=== PATIENT | female | born 1970 | race Caucasian/White ===

== ENCOUNTER 2017-06-14 10:15 | Inpatient (IN) ==
--- NOTE | 2017-06-13 21:45 | Discharge Summary ---
<Shreya Hansen - Last Filed: 06/14/17 10:04> Date of Encounter: 06/14/17 - Discharge Diagnosis (1) Aseptic loosening of prosthetic knee Priority: Primary Status: Acute Qualifiers: Encounter type: initial encounter Qualified Code(s): T84.038A - Mechanical loosening of other internal prosthetic joint, initial encounter; Z96.659 - Presence of unspecified artificial knee joint; Z96.659 - Presence of unspecified artificial knee joint (2) Status post revision of total replacement of right knee Priority: Primary Status: Acute (3) HTN (hypertension) Priority: Secondary Status: Chronic Qualifiers: Hypertension type: essential hypertension Qualified Code(s): I10 - Essential (primary) hypertension (4) Asthma Priority: Secondary Status: Chronic - Discharge Medications Home Medications: Aspirin Enteric Coated [Aspirin EC] 325 mg PO DAILY #21 tablet.dr 06/13/17 [Rx] Enoxaparin [Lovenox] 30 mg SQ Q12HR #20 syr 06/13/17 [Rx] OxyCODONE Immed Rel [Roxicodone 5 MG] 5 mg PO Q6HR PRN 7 Days #28 tablet [Rx] Baclofen [Lioresal] 10 mg PO TID PRN 06/14/17 [History] Budesonide/Formoterol 160/4.5 [Symbicort 160/4.5] 2 puff IH BIDR 06/14/17 [ History] Lisinopril [Zestril] 40 mg PO DAILY 06/14/17 [History] Tramadol HCl [Ultram] 50 mg PO BID PRN 06/14/17 [History] cloNIDine HCl [CloNIDine HCl] 0.1 mg PO TID PRN 06/14/17 [History] Allergies/Adverse Reactions: 3 Allergy/AdvReac Type Severity Reaction Status Date / Time aspirin Allergy Vomiting Verified 06/14/17 10:49 azithromycin [From Zithromax] Allergy Vomiting Verified 06/14/17 10:49 naproxen [From Naprosyn] Allergy Vomiting Verified 06/14/17 10:49 Primary care physician: Giovani Mcbride CNP - Patient Status Disposition: Home, Self-Care Condition: Good - Discharge Instructions Follow Up With: Isael Butler MD [Partnered Physician] - 07/14/17 5:00 pm Shreya Hansen PAC [Physician Program Director/Air Personality] - 06/24/17 8:00 am (Also, appointment 07/02/17 @ 9:30AM ) Giovani Mcbride CNP [Primary Care Provider] - 07/08/17 4:00 pm Anthony Rios MD [Partnered Physician] - 07/20/17 11:00 am ( Appointment in [facility]) - Hospital Course Hospital course: Ms. 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 Qualifiers: Encounter type: subsequent encounter Qualified Code(s): T84.038D - Mechanical loosening of other internal prosthetic joint, subsequent encounter; Z96.659 - Presence of unspecified artificial knee joint; Z96.659 - Presence of unspecified artificial knee joint (3) Status post revision of total replacement of right knee Priority: Primary Status: Acute (4) HTN (hypertension) Priority: Secondary Status: Chronic Qualifiers: Hypertension type: essential hypertension Qualified Code(s): I10 - Essential (primary) hypertension (5) Asthma Priority: Secondary Status: Chronic Qualifiers: Asthma severity: unspecified severity Asthma persistence: unspecified Asthma complication type: unspecified Qualified Code(s): J45.909 - Unspecified asthma, uncomplicated Primary care physician: Giovani Mcbride CNP - Patient Status Functional capacity at discharge: uses cane/walker Overall status at discharge: patient is progressing back to baseline - Hospital Course Hospital course: Ms. Mercado is a 47 year old female Status post revision right total knee. The patient had an uneventful postoperative course. They received antibiotics and physical therapy and were discharged in stable condition. There will follow -up in the office in 2 weeks. - Time Spent with Patient Total time spent providing and/or coordinating discharge services:
[2017-06-14] MEDS ORDERED: Lidocaine -MPF 1% 2 ML VIAL ID ONE (10:37)
[2017-06-14] MEDS ORDERED: Vancomycin 1,750 MG in D5% in Water 250 ML IVPB ONE (10:37)
[2017-06-14] MEDS ORDERED: Vancomycin 1,750 MG in D5% in Water 500 ML IVPB ONE (10:42)
[2017-06-14] MEDS ORDERED: Ringers Solution, Lactated 1,000 ML IVC SCH ×2 (10:45→15:15)
[2017-06-14] MEDS ORDERED: Plasma-Lyte A (PH 7.4) 1,000 ML IVC SCH (11:00)
--- NOTE | 2017-06-14 11:05 | Anesthesia Evaluation PreOp ---
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: Other (depression, anxiety) Other Medical History: Other (hx malignant melanoma) Anesthesia History: No Prior Anesthetic Complications, Past Anesthesia ( hysterectomy and unilateral oopherectomy, cholecystectomy, endometrial ablation , meniscus repair, C-S, tubal, TKR right, cervical spine surgery) Alcohol Use: occasionally Drug use: none Medications and Allergies Aspirin Enteric Coated [Aspirin EC] 325 mg PO DAILY #21 tablet.dr 06/13/17 [Rx] Enoxaparin [Lovenox] 30 mg SQ Q12HR #20 syr 06/13/17 [Rx] OxyCODONE Immed Rel [Roxicodone 5 MG] 5 mg PO Q6HR PRN 7 Days #28 tablet [Rx] Baclofen [Lioresal] 10 mg PO TID PRN 06/14/17 [History] Budesonide/Formoterol 160/4.5 [Symbicort 160/4.5] 2 puff IH BIDR 06/14/17 [ History] Lisinopril [Zestril] 40 mg PO DAILY 06/14/17 [History] Tramadol HCl [Ultram] 50 mg PO BID PRN 06/14/17 [History] cloNIDine HCl [CloNIDine HCl] 0.1 mg PO TID PRN 06/14/17 [History] 3 Allergy/AdvReac Type Severity Reaction Status Date / Time aspirin Allergy Vomiting Verified 06/14/17 10:49 azithromycin [From Zithromax] Allergy Vomiting Verified 06/14/17 10:49 naproxen [From Naprosyn] Allergy Vomiting Verified 06/14/17 10:49 - Meds/Allergy Pre-op Review Medications Reviewed: Yes Allergies Reviewed: Yes Beta Blockers on Current Med List: No Anesthesia Results - Labs Laboratory Tests 05/31/17 05/31/17 05/31/17 11:42 11:42 11:42 WBC 9.3 Hgb 16.3 H Hct 48.9 H Plt Count 289 PT 11.7 INR 1.1 APTT 31.8 Sodium 138 Potassium 3.9 Chloride 107 Carbon Dioxide 22 BUN 14 Creatinine 0.82 Est GFR ( Amer) > 60 Est GFR (Non-Af Amer) > 60 BUN/Creatinine Ratio 17 - Imaging EKG: report reviewed, image reviewed (SR) Anesthesia Exam Last Vital Signs Temp 97.5 F L 06/14/17 10:49 Pulse 76 06/14/17 10:49 Resp 18 06/14/17 10:49 BP 147/95 06/14/17 10:49 Pulse Ox 95 06/14/17 10:49 Weight: 111 kg NPO (# of Hours): >> 8 hrs - HEENT Pupil (Motor): Pupils equal, EOMI Mallampati: II Teeth: Missing, Poor dentition Denture Type: Upper: Partial Oral Opening: Greater than 3 - ESTHETICIAN AND [employer]GER [employer] LOC: Oriented ESTHETICIAN [employer] Motor: Normal RUE, Normal LUE, Normal RLE, Normal LLE, Normal Face - Cardiac Rhythm: Regular Murmur: None - Pulmonary Breath Sounds: bilateral Clear Respiratory Effort: Symmetrical Anesthesia Assess/Plan ASA Score: 3 Modified Ananth Scale for Level of Consciousness: Cooperative, oriented, and tranquil Anesthetic Plan: General, Regional Monitoring Plan: Standard Monitors Recovery Plan: PACU
--- NOTE | 2017-06-14 11:10 | History & Physical Report ---
Date of Encounter: 06/14/17 Time of Encounter: 11:10 24 Hour HP Update - Instructions Instructions: If the History and Physical is less than 30 days old and was completed prior to A.M. admission and or procedure and has NOT been updated on calendar day of procedure please complete this update prior to performing procedure. - Update Patient reports changes in Medical Condition: No Changes in examination, assessment, or condition: No Changes in Medication: No Preop tests/diagnostics Reviewed: Yes Surgery Remains Indicated: Yes Consent for Planned Operative Procedure(s) Verified: Yes - Pre-Operative Checklist Preoperative Checklist Indicated: No Prophylactic Antibiotic Ordered: Yes Is VTE Prophylaxis Indicated?: Yes
[2017-06-14] MEDS ORDERED: Scopolamine Patch 1.5 MG PATCH.TD72 TD ONE (11:16)
[2017-06-14] MEDS ORDERED: Albuterol 2.5 MG/3 ML NEBULIZER IH ONE (11:17)
[2017-06-14] MEDS ORDERED: Ethanol\\Acetic Acid\\Na Ace\\Ben 1,000 ML IRRIG.SOLN IR ONE (11:26)
[2017-06-14] MEDS ORDERED: *HR* Promethazine 25 MG/ML VIAL IVP PRN (11:28)
[2017-06-14] MEDS ORDERED: Ketorolac 30 MG/ML VIAL ONE (11:30)
[2017-06-14] MEDS ORDERED: Dexamethasone 4 MG/ML VIAL ONE ×2 (11:30→11:39)
[2017-06-14] MEDS ORDERED: *HR* Succinylcholine 200 MG/10 ML VIAL IVP ONE (11:39)
[2017-06-14] MEDS ORDERED: Lidocaine -MPF 4% 5 ML AMPUL ONE (11:39)
[2017-06-14] MEDS ORDERED: *HR* Propofol 200 MG/20 ML VIAL IVP ONE (11:39)
[2017-06-14] MEDS ORDERED: *HR* Midazolam HCl 2 MG/2 ML VIAL ONE (11:39)
[2017-06-14] MEDS ORDERED: Ondansetron 4 MG/2 ML VIAL ONE (11:39)
[2017-06-14] MEDS ORDERED: *HR* FentaNYL (PF) 100 MCG/2 ML VIAL ONE (11:39)
[2017-06-14] MEDS ORDERED: Lidocaine -MPF 2% 2 ML VIAL ONE (11:39)
[2017-06-14] MEDS ORDERED: ROPIVACAINE HCL/PF 0.5% 30 ML VIAL ONE (12:02)
--- NOTE | 2017-06-14 12:39 | Anesthesia Procedures ---
Date of Encounter: 06/14/17 Time of Encounter: 12:30 Procedures: Anesthesia - Nerve Block Procedure Date: 06/14/17 Time: 12:30 Allergies/Adv Reactions: ASA, ZITHROMAX,NAPROXEN Pre-op Diagnosis: RIGHT TOTAL KNEE ARTHRITIS Surgical Procedure: RIGHT TOTAL KNEE Checklist: Correct Patient Identifier, Correct procedure, History checked Correct side: Right Blood Thinner: No Monitor Applied: EKG, BP, Pulse Oximetry Supplemental Oxygen via Nasal Cannula (L/min): 2 Sedation: Versed (mg): 2 Sedation: Fentanyl (mcg): 100 Indication: Post Op Analgesia Pre-op Neuro Deficits: No Block Type: Femoral (WITH ipack ) Catheter placed: No Sterile Technique: Yes Ultrasound used: Yes Anatomy identified: Yes Visual spread of Local: Yes Neuro Stimulation: Yes Nerve Stimulator Range: 0.2 - 0.4 mA Blood on Needle Aspiration: No Smooth Injection of Local: Yes Pain with Injection of Local: No Prep: Chlorhexadine Needle: 22 x 50 mm Stimuplex Local: Ropivacaine (0.5% ROPI WITH 8MG DECADRON ), Other (BUPIVICAINE 0.25% WITH IPACK ) Volume (cc): 60 Number of Attempts: 1 Complications: None/effective block Vitals: Vital Signs - Last 8 Hours Temp Pulse Resp BP Pulse Ox 06/14/17 12:14 75 16 150/96 96 06/14/17 10:49 97.5 F L 76 18 147/95 95 06/14/17 10:30 97.5 F L 76 18 147/95 95 Intake and Output 06/13/17 06/14/17 06/14/17 23:59 07:59 15:59 Other: Weight 111.13 kg Patient Weight 06/14/17 23:59 Weight 111.13 kg Comments: PER DR. LYON REQUEST
[2017-06-14] MEDS ORDERED: Acetaminophen IV 1,000 MG/100 ML INFUS..BTL ONE (12:45)
[2017-06-14] MEDS ORDERED: *HR* HYDROmorphone 2 MG/ML SYRINGE ONE (13:35)
--- NOTE | 2017-06-14 13:57 | Orthopedic Operative Note ---
Date of procedure: 06/14/17 Pre-op diagnosis: Right total knee aseptic loosening Post-op diagnosis: same (Mid flexion instability) Procedure: Procedure: Right revision total knee Estimated blood loss: 300 Hardware: Metal and polyethylene replacement. Biomet SSK femur: 65 [id number] Tibia: 71 14x80 Constrained Valeria:22 Exam Under anesthesia: Full flexion and extension, mid flexion valgus instability Procedural Notes: No gross loosening but femur appeared to be looser than tibia. Operative procedure: The patient was brought to the operating room and placed on the operating room table. After general anesthesia was administered the operative knee was examined. Findings were noted in the exam under anesthesia. The operative extremity was prepped and draped in sterile surgical fashion. The patient received IV antibiotics prior to skin incision. A standard midline incision was made centered over the patella through the old incision. The incision was made through the skin and subcutaneous tissue. A medial parapatellar tendon approach was performed. Care was taken to preserve tissue along the medial aspect of the patella. And to protect the patella tendon. The deep MCL was released off the medial tibia. The infra patella fat pad was excised. Fluid was encountered this was normal joint fluid, Cultures were obtained and gram . The knee was brought into flexion the poly-was removed. The interface between the patient's femoral component and distal femur were disrupted with a osteotome and oscillating saw. Femoral component was removed removed without significant bone loss. This appeared to be looser than the tibial component. Attention was then turned to the tibial component. The same technique was used to remove the tibial component by disrupting the interface between the patient' s tibial component and the patients proximal tibia. The tibial component was removed without significant bone loss. The tibia was sized to a 71 was reamed up to a 14 x 80 Trial had good fit and fixation. The femur was sized to a 55, was reamed up to a 18 x 1 20 The finishing guide was seated and the box cut was made. The trial had good fit and fixation. Both trial components were seated and the 22 constrained Valeria was seated and secured. The knee had full flexion and full extension with no mid flexion instability. Patella had excellent patella tracking. The trial components were removed. The knee sat for 2 minutes with a Betadine saline solution. It was irrigated out with 2 L of pulse irrigation. The components were assembled on the back table, the tibia cemented first followed by the femur. The 22 constrained liner was seated and secure. The knee was brought to full extension while the cement hardened. After the cement hardened the knee was irrigated out again. The PA closed the knee. The extensor mechanism was closed with a running #2 Fiberwire suture and a running #2 PDS suture. The deep tissue was irrigated and closed deep with #1 PDS suture superficially with 0 PDS suture. The skin was closed with skin elvira. The patient was placed in a sterile dressing and postoperative brace. They were extubated and transferred to recovery room in stable condition. Anesthesia: YAMILETH Surgeon: Isael Butler Magnetic Resonance Technologist: Betty Ferguson Condition: stable Disposition: PACU
[2017-06-14] MEDS: *HR* HYDROmorphone (PF) 1 MG/ML SYRINGE IVP PRN ×3 (14:45→15:02)
--- NOTE | 2017-06-14 15:14 | Anesthesia Evaluation Post Op ---
Date of Encounter: 06/14/17 Time of Encounter: 15:12 - Vital Signs Vital Signs: vss - Lungs Lungs: Clear Ascult./Percussion - Airway Airway: Non-obstructed - Cardiovascular Baseline Rhythm - Mental Status Mental Status: Asleep with brisk response to light stimulation - Pain Pain Scale used: Dueñas-Wilson (Faces) (to apparent distress noted, resting) - Nausea Vomiting Nausea Vomiting: Not Present - Hydration Hydration: Ice chips - Discharge PostOp Status: Transfer Patient to floor
[2017-06-14] MEDS ORDERED: cloNIDine HCl 0.1 MG TABLET PO PRN (15:15)
[2017-06-14] MEDS ORDERED: Baclofen 10 MG TABLET PO PRN (15:15)
[2017-06-14] MEDS ORDERED: traMADol 50 MG TABLET PO PRN (15:15)
[2017-06-14] MEDS ORDERED: *HR* HYDROmorphone (PF) 1 MG/ML SYRINGE IVP PRN (15:15)
[2017-06-14] MEDS ORDERED: Naloxone 0.4 MG/ML INJ IVP PRN (15:15)
[2017-06-14] MEDS ORDERED: Sennosides 8.6 MG TABLET PO PRN (15:15)
[2017-06-14] MEDS ORDERED: *HR* OxyCODONE Immed Rel 5 MG TABLET PO PRN (15:15)
[2017-06-14 15:31] LABS: Hematocrit 43.2 % (35.3-44.9); Hemoglobin 14.3 g/dL (11.5-15.4)
--- NOTE | 2017-06-14 16:12 | Physician Discharge Referral ---
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 For more information, call the [place] Tobacco Quit Line at 0-786-YSZC-NOW. - Dressing/Wound Care Type of Dressing/Treatments w/Frequency: Opsite placed. Keep dressing intact until first follow up appointment. If > 50% saturated,notify offfice, remove dressing and place appropriate dressing back in place. Dressing is water resistant, not water-proof. OK to shower, but do not get dressing wet. [place] in place, to be removed at POD#14-16. - Diet/Nutrition Diet/Nutrition Orders: Regular - Activity Activity Orders: Up ad katie, Ambulate, Walker - Services Needed Following services are medically necessary services: Nursing, Home Health Aide, Physical Therapy, Occupational Therapy Home Care Orders: PT/OT. WBAT to affected extremity. Follow Total Knee Precautions x 6 weeks. Stay in brace at night only. Plan to discontinue brace after first post- operative appointment. ICE and elevate extremity frequently throughout the day. Encourage ambulation exercises. - Transfer Medications Home Medications: Aspirin Enteric Coated [Aspirin EC] 325 mg PO DAILY #21 tablet. 06/13/17 [Rx] Enoxaparin [Lovenox] 30 mg SQ Q12HR #20 syr 06/13/17 [Rx] OxyCODONE Immed Rel [Roxicodone 5 MG] 5 mg PO Q6HR PRN 7 Days #28 tablet [Rx] Baclofen [Lioresal] 10 mg PO TID PRN 06/14/17 [History] Budesonide/Formoterol 160/4.5 [Symbicort 160/4.5] 2 puff IH BIDR 06/14/17 [ History] Lisinopril [Zestril] 40 mg PO DAILY 06/14/17 [History] Tramadol HCl [Ultram] 50 mg PO BID PRN 06/14/17 [History] cloNIDine HCl [CloNIDine HCl] 0.1 mg PO TID PRN 10/09/17 [History] Allergies/Adverse Reactions: 3 Allergy/AdvReac Type Severity Reaction Status Date / Time aspirin Allergy Vomiting Verified 06/14/17 10:49 azithromycin [From Zithromax] Allergy Vomiting Verified 06/14/17 10:49 naproxen [From Naprosyn] Allergy Vomiting Verified 06/14/17 10:49 Certification: Further, I certify that my clinical findings support that this patient is homebound (i.e. absences from home require considerable and taxing effort and are for medical reasons or [facility]ar[facility] services or infrequently or short duration when for other reasons) because: Homebound Reason: Post-surgery restriction and or conditions limit ability to leave home Attestation: My signature below is to certify that this patient is under my care and that I, or nurse practitioner, or a physician's patient clerical assistant working with me, has a face-to -face encounter with this patient.
[2017-06-14] MEDS: *HR* OxyCODONE Immed Rel 5 MG TABLET PO PRN (16:23)
[2017-06-14] MEDS: Ondansetron 4 MG/2 ML VIAL IVP PRN ×2 (16:23→20:15)
[2017-06-14] MEDS: *HR* Enoxaparin 30 MG/0.3 ML SYRINGE SQ SCH (16:23)
[2017-06-14] MEDS: ceFAZolin 2,000 MG in D5% in Water 100 ML IVPB SCH (17:48)
[2017-06-14] MEDS ORDERED: *HR* Enoxaparin 30 MG/0.3 ML SYRINGE SQ SCH (18:00)
[2017-06-14] MEDS: Budesonide/Formoterol 160/4.5 MDI IH SCH (20:28)
[2017-06-14] MEDS ORDERED: MOM Conc 10 ML UD.LIQ PO PRN (21:00)
[2017-06-14] MEDS ORDERED: Temazepam 15 MG CAPSULE PO PRN (21:00)
[2017-06-15] MEDS: ceFAZolin 2,000 MG in D5% in Water 100 ML IVPB SCH (00:03)
[2017-06-15] MEDS: *HR* Enoxaparin 30 MG/0.3 ML SYRINGE SQ SCH (05:22)
[2017-06-15] MEDS: *HR* OxyCODONE Immed Rel 5 MG TABLET PO PRN ×2 (05:24→10:26)
--- NOTE | 2017-06-15 06:41 | Orthopedics Progress Note ---
Date of Encounter: 06/15/17 Time of Encounter: 06:41 - Assessment and Plan (1) Obesity (BMI 35.0-39.9 without comorbidity) Current Visit: Yes Status: Chronic (2) Aseptic loosening of prosthetic knee Current Visit: No Status: Chronic Qualifiers: Encounter type: subsequent encounter Qualified Code(s): T84.038D - Mechanical loosening of other internal prosthetic joint, subsequent encounter; Z96.659 - Presence of unspecified artificial knee joint; Z96.659 - Presence of unspecified artificial knee joint (3) Status post revision of total replacement of right knee Current Visit: No Status: Acute (4) HTN (hypertension) Current Visit: No Status: Chronic Qualifiers: Hypertension type: essential hypertension Qualified Code(s): I10 - Essential (primary) hypertension (5) Asthma Current Visit: No Status: Chronic Qualifiers: Asthma severity: unspecified severity Asthma persistence: unspecified Asthma complication type: unspecified Qualified Code(s): J45.909 - Unspecified asthma, uncomplicated Subjective Interval history: Patient was seen this morning doing well without complaints. Afebrile vital signs stable. Operative extremity: Neurovascularly intact Dressing clean dry and intact Calves nontender Assessment and plan: Continue with postoperative care Hematocrit 43 discharged today Objective Vital signs: Vital Signs Temp Pulse Resp BP Pulse Ox 06/15/17 04:33 98.1 F 66 127/79 99 06/15/17 00:46 97.4 F L 65 15 135/75 97 06/14/17 20:28 16 93 06/14/17 19:26 64 16 120/75 94 06/14/17 16:38 97.8 F 80 12 119/82 96 06/14/17 15:44 95 06/14/17 15:25 97.7 F 87 12 138/78 98 06/14/17 15:10 97.6 F 57 10 128/76 95 06/14/17 15:00 97.3 F L 70 12 142/86 96 06/14/17 14:50 68 12 149/92 99 06/14/17 14:40 68 12 156/96 100 06/14/17 14:30 98 F 64 12 122/91 98 06/14/17 12:14 75 16 150/96 96 06/14/17 10:49 97.5 F L 76 18 147/95 95 06/14/17 10:30 97.5 F L 76 18 147/95 95 Intake and Output 06/14/17 06/14/17 06/15/17 15:59 23:59 07:59 Intake Total 0 / 0 650 / 650 Output Total 300 / 300 500 / 500 600 / 600 Balance -300 / -300 150 / 150 -600 / -600 Intake: IV Fluids 100 / 100 Ancef 2,000 MG In Dextrose 5% 100 / 100 100 ML @ 200 mls/hr IVPB Q8H SUDHAKAR Rx#:[id number] Oral 0 / 0 550 / 550 Output: Urine 0 / 0 600 / 600 Emesis 500 / 500 Estimated Blood Loss 300 / 300 Other: # Voids 1 Weight 111.13 kg - Labs CBC & BMP: 06/14/17 14:58 - VTE Documentation of Mechanical Device: Intermittent pneumatic compression device Consult Discharge Plan - Plan Referrals: Isael Butler MD [Partnered Physician] - 07/14/17 5:00 pm Shreya Hansen, PAC [Physician Support Specialist] - 06/24/17 8:00 am (Also, appointment 07/02/17 @ 9:30AM ) Giovani Mcbride, MANAGER OF CLINICAL [Primary Care Provider] - 07/08/17 4:00 pm Anthony Rios MD [Partnered Physician] - 07/20/17 11:00 am ( Appointment in [facility])
[2017-06-15 07:04] LABS: Hematocrit 35.4 % (35.3-44.9)
[2017-06-15 07:20] LABS: BUN/Creatinine Ratio 20 (6-26); Blood Urea Nitrogen 16 mg/dL (7-20); Calcium 8.8 mg/dL (8.6-10.8); Carbon Dioxide 19 mEq/L (19-29); Chloride 107 mEq/L (98-109); Glucose 124 mg/dL (70-99); Osmolality,Calculated 283 (280-300); Potassium 4.7 mEq/L (3.5-4.5); eGFR For African Americans > 60 (> 60); eGFR For Non-African Americans > 60 (> 60)
[2017-06-15 07:22] LABS: Sodium 135 mEq/L (136-145)
[2017-06-15 07:38] LABS: Hemoglobin 12.2 g/dL (11.5-15.4)
[2017-06-15] MEDS ORDERED: Lisinopril 20 MG TABLET PO SCH (09:00)
[2017-06-15 11:15] VITALS: BP 144/87
[2017-06-15] MEDS: Budesonide/Formoterol 160/4.5 MDI IH SCH (11:24)
== END 2017-06-15 12:05 | disposition home or self-care (01) | DRG 302 ==
LOC: SAMDAY 10:15 → 3NENU 15:54
PROVIDERS: ADMIT Orthopaedic Surgery; ATTEND Orthopaedic Surgery